=== PATIENT | female | born 1975 | race Caucasian/White ===

== ENCOUNTER 2024-11-24 09:47 | Day surgery (SDC) | payer OTHER ==
[~2024-11-24] VITALS: Ht 172.7 cm; Wt 102.3 kg
[~2024-11-24 09:47] MED LIST: ATOR1TAB19 PO; HYDR50TA70 PO; JARD1TAB3 PO; LISI2.5T9 PO; SEMA1PEN2; SUMA50TA2
[2024-11-24] MEDS ORDERED: LIDOCAINE 2% 100MG/5ML SDV (FOR ANES.) As Ordered ONE (11:23)
[2024-11-24] MEDS ORDERED: propofoL 200 MG/20 ML VIAL As Ordered ONE (11:23)
[2024-11-24 12:20] VITALS: BP 134/80; O2SAT 98
== END 2024-11-24 12:50 | disposition home or self-care (01) ==
LOC: M OPP 09:47
PROVIDERS: ATTEND Internal Medicine Gastroenterology
DX: Z12.11 Encounter for screening for malignant neoplasm of colon (principal); K64.0 First degree hemorrhoids; Z79.84 Long term (current) use of oral hypoglycemic drugs; Z79.85 Long-term (current) use of injectable non-insulin antidiabetic drugs; Z79.899 Other long term (current) drug therapy